=== PATIENT | male | born 1960 | race African-American/Black ===

== ENCOUNTER 2017-09-08 16:03 | Emergency (ER) | payer OTHER ==
[~2017-09-08] VITALS: Ht 170.2 cm; Wt 83.0 kg
[~2017-09-08 16:03] MED LIST: MOBI15TA PO
[2017-09-08 16:06] VITALS: BP 124/66; PULSE 90; RESP 13; TEMP 97.8; O2SAT 96
--- NOTE | 2017-09-08 17:18 | PD ---
HPI Chief Complaint: Laceration/Skin Injury Time Seen by Provider: 16:57 Travel History International Travel<30 days: No Contact w/Intl Traveler<30days: No Traveled to known affect area: No History of Present Illness HPI 57-year-old Afro-[place]er male presents emergency Department with laceration to the left forearm from a chainsaw that he was working on. Patient states he kicked up and caught him in the left forearm. He denies, tingling, or loss of function of the left hand. Patient has normal movement and special educator strength. He does not feel that it hit the bone. Patient had a tetanus recently at the [facility]. Pain is minimal. Bleeding is currently controlled. He has no known drug allergies. PFSH Past Medical History Autoimmune Disease: No Blood Disorders: No Cancer: No Cardiovascular Problems: No Cerebrovascular Accident: No Diminished Hearing: No Endocrine: No Gastrointestinal Disorders: No Genitourinary: No Headaches: No Musculoskeletal: No Neurologic: No Psychiatric: No Reproductive: No Respiratory: No Migraines: No Radiation Therapy: No Seizures: No Past Surgical History Abdominal Surgery: No Cardiac Surgery: No Ear Surgery: No Endocrine Surgery: No Eye Surgery: No Genitourinary Surgery: No Gynecologic Surgery: No Oral Surgery: No Thoracic Surgery: No Other Surgery: Yes (LEFT HAND FROM CHAIN SAW TRAUMA) Social History Alcohol Use: No Tobacco Use: Yes (1/2 PPD) Substance Use: No Allergies-Medications (Allergen,Severity, Reaction): Coded Allergies: No Known Allergies (Verified , 09/08/17) Reported Meds & Prescriptions Reported Meds & Active Scripts Active Bactrim DS (Sulfamethoxazole-Trimethoprim) 800-160 Mg Tab 1 Tab PO BID Reported Mobic (Meloxicam) 15 Mg Tab 15 Mg PO DAILY Review of Systems Except as stated in HPI: all other systems reviewed are Neg General / Constitutional: No: Fever Eyes: No: Visual changes HENT: No: Headaches Cardiovascular: No: Chest Pain or Discomfort Respiratory: No: Shortness of Breath Gastrointestinal: No: Abdominal Pain Genitourinary: No: Dysuria Musculoskeletal: No: Pain Skin: Positive Lesions (laceration.), No Rash Neurologic: No: Weakness Psychiatric: No: Depression Endocrine: No: Polydipsia Hematologic/Lymphatic: No: Easy Bruising Physical Exam Narrative GENERAL: Patient is in no acute distress. SKIN: Warm and dry. Patient has a somewhat irregular linear full-thickness skin laceration to the left middle dorsal forearm. There is no sign of laceration of the muscle or tendon. HEAD: Atraumatic. Normocephalic. EYES: Pupils equal and round. No scleral icterus. No injection or drainage. ENT: No nasal bleeding or discharge. Mucous membranes pink and moist. Pharynx is clear. Airway is patent. NECK: Trachea midline. Supple.. CARDIOVASCULAR: Regular rate and rhythm. RESPIRATORY: No accessory muscle use. Clear to auscultation. Breath sounds equal bilaterally. MUSCULOSKELETAL: Extremities without clubbing, cyanosis, or edema. No obvious deformities. Range of motion, special educator strength, is normal in the left upper extremity. NEUROLOGICAL: Awake and alert. No obvious cranial nerve deficits. Motor grossly within normal limits. Five out of 5 muscle strength in the arms and legs. Normal speech. PSYCHIATRIC: Appropriate mood and affect; insight and judgment normal. Data Data Last Documented VS Vital Signs Date Time Temp Pulse Resp B/P (MAP) Pulse Ox O2 Delivery O2 Flow Rate FiO2 09/08/17 16:06 97.8 90 13 124/66 (85) 96 Orders Orders Lidocai-Epi 2%-1:100,000 Inj (Xylocaine- (09/08/17 17:30) MDM Medical Decision Making Medical Screen Exam Complete: Yes Emergency Medical Condition: Yes Differential Diagnosis Laceration left forearm. Chainsaw injury. Possible muscle laceration. Possible tendon laceration. Need for sutures Narrative Course Tetanus is up-to-date. Laceration was closed Wound care was discussed with the patient Patient comes in with Bactrim DS twice a day 5 days. Patient have sutures removed in 7-10 days. Patient to follow up sooner if worsening symptoms develop as needed Procedures Procedure Narrative LACERATION LOCATION: Mid Left dorsal forearm LENGTH: 6 cm NUMBER OF STITCHES/JEFFREY: 1 vertical mattress, 3 interrupted horizontal mattress, and 4 simple interrupted REPAIR: The area of the laceration was prepped with Betadine and sterilely draped. The laceration was infiltrated with 2.5 mL 2% lidocaine with epi. The wound was copiously irrigated and explored without evidence of foreign body, tendon injury or neurovascular injury. The wound was closed using 5-0 Prolene. This was a single layer repair. A sterile dressing was applied. The patient was advised to keep the dressing clean and dry. Patient tolerated the procedure well. Diagnosis Primary Impression: Laceration of left forearm without complication Qualified Codes: S51.812A - Laceration without foreign body of left forearm, initial encounter Referrals: [facility] Patient Instructions: Care For Your Stitches (ED), General Instructions Additional Instructions: Tetanus is up-to-date. Laceration was closed Wound care was discussed with the patient Patient comes in with Bactrim DS twice a day 5 days. Patient have sutures removed in 7-10 days. Patient to follow up sooner if worsening symptoms develop as needed Med/Other Pt SpecificInfo: Prescription(s) given, Wound Care Scripts Sulfamethoxazole-Trimethoprim (Bactrim DS) 800-160 Mg Tab 1 TAB PO BID for Infection, #10 TAB 0 Refills Prov: Juan C Celis MD 09/08/17 Disposition: 01 DISCHARGE HOME Condition: Stable Geraldo Lai Sep 08, 2017 17:18
[2017-09-08] MEDS ORDERED: LIDOCAINE 2%/EPINEPHrine 1:100,000 20ML MDV NERV BLOCK ONE (17:30)
[2017-09-08] MEDS ORDERED: BACT800T5 PO (17:52)
== END 2017-09-08 18:04 | disposition home or self-care (01) ==
LOC: NEPK 16:03
DX: S51.812A Laceration without foreign body of left forearm, initial encounter (principal); W31.2XXA Contact with powered woodworking and forming machines, initial encounter; Z72.0 Tobacco use
CPT/HCPCS: 12002